=== PATIENT | male | born 1945 | race Caucasian/White ===

== ENCOUNTER 2022-08-29 08:57 | Emergency (ER) | payer BC, MEDICARE ==
[2022-08-29 09:32] LABS: Bilirubin Neg (Negative); Blood, Urine 250 (Negative); Clarity Cloudy (Clear); Glucose, Urine (Dipstick) Normal (Negative); Ketone, Urine 5 mg/dL (Negative); Leukocyte 500 (Negative); Nitrite Negative (Negative); Protein, Urine (Dipstick) 100 mg/dl (Neg-Trace); Urobilinogen Normal mg/dL (Less than 2)
[2022-08-29 09:42] LABS: RBC/HPF Greater than 50 HPF (0-3)
[2022-08-29 09:46] LABS: Squamous Epithelial 0-3 HPF (0-3)
[2022-08-29 09:47] LABS: Bacteria/HPF 1+ HPF (None Seen)
== END 2022-08-29 12:10 | disposition home or self-care (01) ==
LOC: CSHERS 08:57
DX: N39.0 Urinary tract infection, site not specified (principal); R31.9 Hematuria, unspecified; I10 Essential (primary) hypertension; Z79.899 Other long term (current) drug therapy; Z79.82 Long term (current) use of aspirin
CPT/HCPCS: 81003; 81015; 99283

== ENCOUNTER 2022-09-05 15:56 | Inpatient (IN) | payer MEDICARE ==
[2022-09-05 17:16] LABS: #Eosinphils 0.1 10x3/uL (0.0-0.5); #Monocytes 0.5 10x3/uL (0.0-1.1); #Neutrophils 3.4 10x3/uL (1.5-8.4); %Basophils 0.2 % (0.0-2.0); %Eosinophils 2.1 % (0.0-6.0); %Lymphocytes 22.8 % (18.0-47.0); %Monocytes 9.1 % (0.0-10.0); %Neutrophils 65.6 % (40.0-75.0); Hemoglobin 13.3 g/dL (13.5-17.5); Mean Corpuscular HGB CONC 33.9 g/dL (32.0-36.0); Mean Corpuscular Hemoglobin 30.2 pg (27.0-33.0); Mean Corpuscular Volume 88.9 fl (81.2-95.1); Mean Platelet Volume 9.7 fl (7.4-10.4); Platelet Count 164 10x3/uL (150-450); Red Blood Cell (RBC) Count 4.41 10x6/uL (4.32-5.72); White Blood Cell (WBC) Count 5.2 10x3/uL (3.5-10.5)
[2022-09-05 17:31] LABS: INR-International Normal Ratio 1.1; PTT 31.9 sec (22.0-33.0); Prothrombin Time 11.7 sec (9.5-12.1)
[2022-09-05 17:34] LABS: ALT (SGPT) 9 U/L (8-55); AST (SGOT) 24 U/L (5-34); Albumin 4.3 g/dL (3.4-4.8); Alkaline Phosphatase 67 U/L (40-110); Anion Gap 15 mmol/L (10-20); BUN (Urea Nitrogen) 19 mg/dL (8.4-25.7); Bilirubin, Total 0.4 mg/dL (0.2-1.2); Calc. Creatinine Clearance 0 mL/min (70-130); Calcium 9.1 mg/dL (7.8-10.44); Carbon Dioxide 23 mmol/L (23-31); Chloride 104 mmol/L (98-107); Estimated GFR 74; Globulin 2.7 g/dL (2.4-3.5); Glucose 90 mg/dL (83-110); Potassium 4.3 mmol/L (3.5-5.1); Sodium 138 mmol/L (136-145)
[2022-09-05] MEDS ORDERED: Morphine 4 MG/ML VIAL ONE ×2 (17:44→18:41)
[2022-09-05] MEDS ORDERED: Ondansetron PF 4 MG/2 ML Vial ONE (17:45)
[2022-09-05] MEDS ORDERED: Ondansetron ODT 4 MG TAB PO PRN (21:26)
[2022-09-05] MEDS ORDERED: Ondansetron PF 4 MG/2 ML Vial IVP PRN (21:26)
[2022-09-05 23:55] VITALS: BMI 28.4
[2022-09-05] MEDS: Sodium Chloride 0.9% 1,000 ML IV SCH (23:57)
[2022-09-06] MEDS: Morphine 4 MG/ML VIAL SLOW IVP PRN ×3 (06:16→19:55)
[2022-09-06] MEDS: Trospium 20 MG TAB PO SCH ×3 (08:51→20:28)
[2022-09-06] MEDS: Venlafaxine HCl XR 75 MG CAP PO SCH ×2 (08:51→09:43)
[2022-09-06] MEDS: Famotidine 20 MG TAB PO SCH ×3 (08:51→20:28)
[2022-09-06] MEDS: Gabapentin 100 MG CAP PO SCH ×3 (08:52→20:28)
[2022-09-06] MEDS: Carbidopa/Levodopa 25-250 mg Tablet PO SCH ×3 (08:52→20:28)
[2022-09-06] MEDS: Aspirin 81 mg Enteric Coated Tablet PO SCH (08:52)
[2022-09-06] MEDS: Carvedilol 6.25 MG TAB PO SCH ×2 (08:52→18:02)
[2022-09-06] MEDS: Acetaminophen 325 MG TAB PO PRN ×2 (11:34→18:01)
[2022-09-06] MEDS: Sodium Chloride 0.9% 1,000 ML IV SCH (11:56)
[2022-09-06 16:38] LABS: Bilirubin Neg (Negative); Blood, Urine 10 (Negative); Clarity Clear (Clear); Glucose, Urine (Dipstick) Normal (Negative); Ketone, Urine 15 mg/dL (Negative); Leukocyte 25 (Negative); Nitrite Negative (Negative); Protein, Urine (Dipstick) 15 mg/dl (Neg-Trace)
[2022-09-06 17:00] LABS: Bacteria/HPF None Seen HPF (None Seen); CAUTI Indications for Culture Acute Hematuria; RBC/HPF 0-3 HPF (0-3); Squamous Epithelial 0-3 HPF (0-3); WBC/HPF 0-3 HPF (0-3)
[2022-09-06 17:02] LABS: Urine Culture Reflex No No
[2022-09-06] MEDS ORDERED: Tamsulosin HCl 0.4 MG CAP PO SCH (21:00)
[2022-09-07] MEDS: Sodium Chloride 0.9% 1,000 ML IV SCH ×2 (01:24→12:11)
[2022-09-07] MEDS: Acetaminophen 325 MG TAB PO PRN (04:38)
[2022-09-07] MEDS ORDERED: ALPRAZolam 0.25 MG TAB PO SCH (09:00)
[2022-09-07] MEDS: Trospium 20 MG TAB PO SCH ×2 (09:08→21:22)
[2022-09-07] MEDS: Carbidopa/Levodopa 25-250 mg Tablet PO SCH ×3 (09:08→20:31)
[2022-09-07] MEDS: Aspirin 81 mg Enteric Coated Tablet PO SCH (09:08)
[2022-09-07] MEDS: Famotidine 20 MG TAB PO SCH ×2 (09:08→20:35)
[2022-09-07] MEDS: Venlafaxine HCl XR 75 MG CAP PO SCH (09:08)
[2022-09-07] MEDS: Gabapentin 100 MG CAP PO SCH ×2 (09:09→20:35)
[2022-09-07] MEDS: Carvedilol 6.25 MG TAB PO SCH ×2 (09:10→17:28)
[2022-09-08] MEDS: NIRMATRELVIR 150 MG/RITONAVIR 100 MG PO SCH ×3 (00:14→16:13)
[2022-09-08] MEDS: Sodium Chloride 0.9% 1,000 ML IV SCH ×2 (07:32→18:35)
[2022-09-08] MEDS: Gabapentin 100 MG CAP PO SCH ×2 (09:45→23:14)
[2022-09-08] MEDS: Famotidine 20 MG TAB PO SCH ×2 (09:45→23:15)
[2022-09-08] MEDS: Carbidopa/Levodopa 25-250 mg Tablet PO SCH ×3 (09:45→23:14)
[2022-09-08] MEDS: Aspirin 81 mg Enteric Coated Tablet PO SCH ×2 (09:45→23:15)
[2022-09-08] MEDS: Carvedilol 6.25 MG TAB PO SCH ×2 (09:45→17:54)
[2022-09-08] MEDS: Trospium 20 MG TAB PO SCH ×2 (09:46→23:14)
[2022-09-08] MEDS: Venlafaxine HCl XR 75 MG CAP PO SCH (09:46)
[2022-09-08] MEDS ORDERED: Neomycin-Polymyxin 1 ML AMP ONE (11:32)
[2022-09-08] MEDS ORDERED: EPINEPHrine 1 MG/ML AMP ONE (11:54)
[2022-09-08] MEDS ORDERED: Bupivacaine PF 0.5% 30 ML VIAL ONE (11:54)
[2022-09-08] MEDS ORDERED: PROPOFOL 20 ML ONE (13:22)
[2022-09-08] MEDS ORDERED: Fentanyl 100 MCG/2 ML VIAL ONE (13:22)
[2022-09-08] MEDS ORDERED: Dexamethasone 4 mg/ml Vial ONE (13:23)
[2022-09-08] MEDS ORDERED: Ondansetron PF 4 MG/2 ML Vial ONE (13:23)
[2022-09-08] MEDS ORDERED: Lidocaine 2% PF 5 ML VIAL ONE (13:23)
[2022-09-08] MEDS ORDERED: Rocuronium Bromide 10 MG/ML (10ML VIAL) ONE (13:23)
[2022-09-08] MEDS ORDERED: Tranexamic Acid 1,000 MG/10 ML VIAL ONE ×2 (13:46→14:28)
[2022-09-08] MEDS ORDERED: CEFAZOLIN 1 GM VIAL ONE (13:46)
[2022-09-08] MEDS ORDERED: Glycopyrrolate 0.2 MG/ML 5 ML SYRINGE ONE (14:36)
[2022-09-08] MEDS ORDERED: Communication Order-Pharmacy FS SCH (15:00)
[2022-09-08] MEDS ORDERED: HYDROcodone/Acetaminophen 10/325 mg Tablet PO PRN (15:00)
[2022-09-08] MEDS ORDERED: TETANUS, DIPHTHERIA TOX,ADULT (TDVAX) 0.5 ML VIAL IM ONE (15:00)
[2022-09-08] MEDS: CEFAZOLIN 2 GM in Sodium Chloride 0.9% 100 ML IVPB SCH (23:13)
[2022-09-09] MEDS: CEFAZOLIN 2 GM in Sodium Chloride 0.9% 100 ML IVPB SCH (06:26)
[2022-09-09] MEDS: Sodium Chloride 0.9% 1,000 ML IV SCH ×2 (06:26→21:25)
[2022-09-09 08:36] LABS: Hemoglobin 11.3 g/dL (13.5-17.5); MDiff Complete? YES; Manual Diff?? YES; Mean Corpuscular Hemoglobin 30.1 pg (27.0-33.0); Mean Corpuscular Volume 86.1 fl (81.2-95.1); Mean Platelet Volume 9.8 fl (7.4-10.4); Platelet Count 192 10x3/uL (150-450); RBC Distribution Width 14.3 % (11.5-14.5); Red Blood Cell (RBC) Count 3.75 10x6/uL (4.32-5.72); White Blood Cell (WBC) Count 10.2 10x3/uL (3.5-10.5)
[2022-09-09 08:46] LABS: ALT (SGPT) 13 U/L (8-55); AST (SGOT) 30 U/L (5-34); Albumin 3.5 g/dL (3.4-4.8); Alkaline Phosphatase 55 U/L (40-110); Anion Gap 16 mmol/L (10-20); BUN (Urea Nitrogen) 26 mg/dL (8.4-25.7); Bilirubin, Total 0.9 mg/dL (0.2-1.2); Calc. Creatinine Clearance 104 mL/min (70-130); Calcium 8.6 mg/dL (7.8-10.44); Carbon Dioxide 21 mmol/L (23-31); Chloride 109 mmol/L (98-107); Estimated GFR 93; Glucose 134 mg/dL (83-110); Potassium 3.7 mmol/L (3.5-5.1); Protein, Total 6.5 g/dL (5.8-8.1); Sodium 142 mmol/L (136-145)
[2022-09-09 09:07] LABS: Band 8 % (5-11); Lymphocytes 9 % (21-51); Monocytes 4 % (0-10); Neutrophil 78 % (42-75); Reactive Lymphocytes 1 % (0-10)
[2022-09-09 09:08] LABS: Platelet Morphology Comment Appears Adequate
[2022-09-09] MEDS: Acetaminophen 325 MG TAB PO PRN ×3 (12:01→20:04)
[2022-09-09] MEDS: Gabapentin 100 MG CAP PO SCH ×2 (12:02→22:00)
[2022-09-09] MEDS: Carbidopa/Levodopa 25-250 mg Tablet PO SCH ×3 (12:02→21:42)
[2022-09-09] MEDS: Aspirin 81 mg Enteric Coated Tablet PO SCH ×2 (12:02→20:04)
[2022-09-09] MEDS: Venlafaxine HCl XR 75 MG CAP PO SCH (12:03)
[2022-09-09] MEDS: Famotidine 20 MG TAB PO SCH ×2 (12:03→20:04)
[2022-09-09] MEDS: Carvedilol 6.25 MG TAB PO SCH ×2 (12:03→16:19)
[2022-09-09] MEDS: Trospium 20 MG TAB PO SCH ×2 (12:03→20:04)
[2022-09-09] MEDS: NIRMATRELVIR 150 MG/RITONAVIR 100 MG PO SCH ×2 (12:10→21:43)
[2022-09-10] MEDS ORDERED: Melatonin 3 MG TAB PO SCH (01:30)
[2022-09-10] MEDS: NIRMATRELVIR 150 MG/RITONAVIR 100 MG PO SCH ×2 (09:19→22:49)
[2022-09-10] MEDS: Famotidine 20 MG TAB PO SCH ×2 (09:20→22:46)
[2022-09-10] MEDS: Gabapentin 100 MG CAP PO SCH ×2 (09:20→22:46)
[2022-09-10] MEDS: Carbidopa/Levodopa 25-250 mg Tablet PO SCH ×3 (09:21→22:46)
[2022-09-10] MEDS: Trospium 20 MG TAB PO SCH ×2 (09:21→22:46)
[2022-09-10] MEDS: Acetaminophen 325 MG TAB PO PRN ×3 (09:21→22:42)
[2022-09-10] MEDS: Venlafaxine HCl XR 75 MG CAP PO SCH (09:22)
[2022-09-10] MEDS: Carvedilol 6.25 MG TAB PO SCH ×2 (09:24→17:07)
[2022-09-10] MEDS: Aspirin 81 mg Enteric Coated Tablet PO SCH ×2 (09:24→22:46)
[2022-09-10] MEDS: Sodium Chloride 0.9% 1,000 ML IV SCH (09:25)
[2022-09-11] MEDS: Morphine 4 MG/ML VIAL SLOW IVP PRN ×2 (00:44→20:12)
[2022-09-11] MEDS: Sodium Chloride 0.9% 1,000 ML IV SCH ×2 (00:47→19:15)
[2022-09-11] MEDS: Aspirin 81 mg Enteric Coated Tablet PO SCH ×2 (08:16→21:41)
[2022-09-11] MEDS: ALPRAZolam 0.25 MG TAB PO SCH (08:16)
[2022-09-11] MEDS: Trospium 20 MG TAB PO SCH ×2 (08:16→21:41)
[2022-09-11] MEDS: Venlafaxine HCl XR 75 MG CAP PO SCH (08:16)
[2022-09-11] MEDS: Famotidine 20 MG TAB PO SCH ×2 (08:16→21:41)
[2022-09-11] MEDS: Gabapentin 100 MG CAP PO SCH ×2 (08:17→21:42)
[2022-09-11] MEDS: Carvedilol 6.25 MG TAB PO SCH ×2 (08:17→19:15)
[2022-09-11] MEDS ORDERED: Calcium Carbonate 500 MG ChewTAB PO PRN (09:26)
[2022-09-11] MEDS ORDERED: Sodium Chloride 0.9% 500 ML IV SCH (09:30)
[2022-09-11] MEDS: Carbidopa/Levodopa 25-250 mg Tablet PO SCH ×3 (15:00→21:43)
[2022-09-11] MEDS: Acetaminophen 325 MG TAB PO PRN (19:15)
[2022-09-11] MEDS: Tamsulosin HCl 0.4 MG CAP PO SCH (21:42)
[2022-09-12] MEDS: Morphine 4 MG/ML VIAL SLOW IVP PRN (08:33)
[2022-09-12] MEDS: Sodium Chloride 0.9% 1,000 ML IV SCH ×2 (08:34→13:33)
[2022-09-12] MEDS: Carbidopa/Levodopa 25-250 mg Tablet PO SCH ×3 (08:34→21:30)
[2022-09-12] MEDS: Carvedilol 6.25 MG TAB PO SCH ×2 (08:34→16:54)
[2022-09-12] MEDS: Trospium 20 MG TAB PO SCH ×2 (08:34→21:30)
[2022-09-12] MEDS: ALPRAZolam 0.25 MG TAB PO SCH (08:34)
[2022-09-12] MEDS: Venlafaxine HCl XR 75 MG CAP PO SCH (08:34)
[2022-09-12] MEDS: Gabapentin 100 MG CAP PO SCH ×2 (08:34→21:30)
[2022-09-12] MEDS: Famotidine 20 MG TAB PO SCH ×2 (08:34→21:31)
[2022-09-12] MEDS: Aspirin 81 mg Enteric Coated Tablet PO SCH ×2 (08:34→21:30)
[2022-09-12] MEDS: Tamsulosin HCl 0.4 MG CAP PO SCH (21:30)
[2022-09-13] MEDS: Sodium Chloride 0.9% 1,000 ML IV SCH ×2 (05:05→18:46)
[2022-09-13] MEDS: ALPRAZolam 0.25 MG TAB PO SCH (09:54)
[2022-09-13] MEDS: Gabapentin 100 MG CAP PO SCH ×2 (09:54→20:19)
[2022-09-13] MEDS: Famotidine 20 MG TAB PO SCH ×2 (09:54→20:19)
[2022-09-13] MEDS: Carbidopa/Levodopa 25-250 mg Tablet PO SCH ×3 (09:54→20:18)
[2022-09-13] MEDS: Carvedilol 6.25 MG TAB PO SCH ×2 (09:54→16:06)
[2022-09-13] MEDS: Aspirin 81 mg Enteric Coated Tablet PO SCH ×2 (09:54→20:18)
[2022-09-13] MEDS: Venlafaxine HCl XR 75 MG CAP PO SCH (09:55)
[2022-09-13] MEDS: Acetaminophen 325 MG TAB PO PRN ×2 (09:55→16:06)
[2022-09-13] MEDS: Trospium 20 MG TAB PO SCH ×2 (09:55→20:18)
[2022-09-13] MEDS ORDERED: Polyethylene Glycol 3350 17 GM Packet PO PRN (11:53)
[2022-09-13 12:21] LABS: #Basophils 0.1 10x3/uL (0.0-0.2); #Eosinphils 0.3 10x3/uL (0.0-0.5); #Monocytes 0.9 10x3/uL (0.0-1.1); #Neutrophils 5.2 10x3/uL (1.5-8.4); %Basophils 0.9 % (0.0-2.0); %Eosinophils 3.5 % (0.0-6.0); %Lymphocytes 19.7 % (18.0-47.0); %Neutrophils 61.4 % (40.0-75.0); Hemoglobin 12.2 g/dL (13.5-17.5); Mean Corpuscular HGB CONC 33.4 g/dL (32.0-36.0); Mean Corpuscular Hemoglobin 30.1 pg (27.0-33.0); Mean Corpuscular Volume 90.1 fl (81.2-95.1); Mean Platelet Volume 9.3 fl (7.4-10.4); Platelet Count 281 10x3/uL (150-450); RBC Distribution Width 14.8 % (11.5-14.5); Red Blood Cell (RBC) Count 4.05 10x6/uL (4.32-5.72); White Blood Cell (WBC) Count 8.5 10x3/uL (3.5-10.5)
[2022-09-13 12:37] LABS: Anion Gap 13 mmol/L (10-20); BUN (Urea Nitrogen) 14 mg/dL (8.4-25.7); Calc. Creatinine Clearance 129 mL/min (70-130); Calcium 8.3 mg/dL (7.8-10.44); Carbon Dioxide 25 mmol/L (23-31); Chloride 105 mmol/L (98-107); Estimated GFR 99; Glucose 85 mg/dL (83-110); Magnesium 1.6 mg/dL (1.6-2.6); Potassium 3.7 mmol/L (3.5-5.1); Sodium 139 mmol/L (136-145)
[2022-09-13] MEDS ORDERED: Electrolyte Replacement Protocol 1 EACH FS SCH (16:45)
[2022-09-13] MEDS ORDERED: Magnesium 2 GM/50 ML(in water) 2 GM in Premix Bag 1 BAG IVPB SCH (17:00)
[2022-09-13] MEDS: Docusate 100 MG CAP PO SCH (20:18)
[2022-09-13] MEDS: Tamsulosin HCl 0.4 MG CAP PO SCH (20:18)
[2022-09-13] MEDS: Morphine 4 MG/ML VIAL SLOW IVP PRN (22:11)
[2022-09-14 05:14] LABS: Phosphorus 3.5 mg/dL (2.3-4.7)
[2022-09-14] MEDS ORDERED: Magnesium 2 GM/50 ML(in water) 2 GM in Premix Bag 1 BAG IVPB SCH (06:00)
[2022-09-14 08:17] VITALS: TEMP 97.6
[2022-09-14] MEDS: ALPRAZolam 0.25 MG TAB PO SCH (09:14)
[2022-09-14] MEDS: Acetaminophen 325 MG TAB PO PRN (09:14)
[2022-09-14] MEDS: Venlafaxine HCl XR 75 MG CAP PO SCH (09:14)
[2022-09-14] MEDS: Aspirin 81 mg Enteric Coated Tablet PO SCH (09:15)
[2022-09-14] MEDS: Gabapentin 100 MG CAP PO SCH (09:15)
[2022-09-14] MEDS: Trospium 20 MG TAB PO SCH (09:15)
[2022-09-14] MEDS: Docusate 100 MG CAP PO SCH (09:16)
[2022-09-14] MEDS: Carbidopa/Levodopa 25-250 mg Tablet PO SCH (09:16)
[2022-09-14 09:17] VITALS: BP 156/84
[2022-09-14] MEDS: Carvedilol 6.25 MG TAB PO SCH (09:17)
[2022-09-14] MEDS: Famotidine 20 MG TAB PO SCH (09:18)
== END 2022-09-14 12:45 | DRG 521 ==
LOC: CSHERS 15:56 → CSHTELE 20:49
PROVIDERS: ADMIT Family Medicine; ATTEND Internal Medicine
PROC: 8E0ZXY6 Isolation (ICD-10-PCS; 2022-09-05)
PROC: XW0DXF5 Introduction of Other New Technology Therapeutic Substance into Mouth and Pharynx, External Approach, New Technology Group 5 (ICD-10-PCS; 2022-09-06)
PROC: 0SRR0JZ Replacement of Right Hip Joint, Femoral Surface with Synthetic Substitute, Open Approach (ICD-10-PCS; principal; 2022-09-08)
DX: S72.011A Unspecified intracapsular fracture of right femur, initial encounter for closed fracture (principal); U07.1 COVID-19; D62 Acute posthemorrhagic anemia; G20 Parkinson's disease; I10 Essential (primary) hypertension; G62.9 Polyneuropathy, unspecified; W19.XXXA Unspecified fall, initial encounter; F41.9 Anxiety disorder, unspecified; E83.42 Hypomagnesemia; E86.0 Dehydration; Z98.890 Other specified postprocedural states; Z87.891 Personal history of nicotine dependence; Y92.9 Unspecified place or not applicable
CPT/HCPCS: 36415; 71045; 80048; 80053; 81001; 83735; 84100; 85025; 85610; 85730; 86850; 86900; 86901; 93005; 93010; 93306; 94760; 96374; 96375; 96376; C1713; C1776; J0171; J0690; J1100; J1650; J2001; J2270; J2405; J2704; J3010; J3475; J3490; J7030; J7050; S0020

== ENCOUNTER 2024-07-26 22:18 | Emergency (ER) | payer MEDICARE ==
[2024-07-26] MEDS ORDERED: cloNIDine 0.1 MG TAB ONE (22:40)
[2024-07-26 22:50] LABS: Bilirubin Neg (Negative); Blood, Urine 250 (Negative); Glucose, Urine (Dipstick) Normal (Negative); Ketone, Urine Negative (Negative); Leukocyte Negative (Negative); Nitrite Negative (Negative); Urobilinogen Normal mg/dL (Less than 2)
[2024-07-26 22:53] LABS: Clarity Cloudy (Clear); Protein, Urine (Dipstick) 100 mg/dl (Neg-Trace)
[2024-07-26 22:54] LABS: CAUTI Indications for Culture Acute Hematuria; RBC/HPF Greater than 50 HPF (0-3)
[2024-07-26 22:55] LABS: Bacteria/HPF Rare-Few HPF (None Seen); Squamous Epithelial None Seen HPF (0-3)
[2024-07-26 22:56] LABS: Urine Culture Reflex No No
== END 2024-07-27 00:28 | disposition home or self-care (01) ==
LOC: CSHERS 22:18
DX: R31.9 Hematuria, unspecified (principal); I10 Essential (primary) hypertension; Z79.899 Other long term (current) drug therapy
CPT/HCPCS: 81001

== ENCOUNTER 2024-07-27 12:20 | Emergency (ER) | payer MEDICARE ==
[2024-07-27] MEDS ORDERED: Lidocaine 2% 6 ML (Jelly) SYR ONE (13:04)
== END 2024-07-27 14:45 | disposition home or self-care (01) ==
LOC: CSHERS 12:20
DX: T83.011A Breakdown (mechanical) of indwelling urethral catheter, initial encounter (principal); I10 Essential (primary) hypertension; R31.9 Hematuria, unspecified; Z79.899 Other long term (current) drug therapy
CPT/HCPCS: 51702; 81001; 99283